=== PATIENT | male | born 1985 | race African-American/Black ===

== ENCOUNTER 2017-10-06 02:47 | Emergency (ER) | payer MEDICAID ==
[~2017-10-06] VITALS: Ht 165.1 cm; Wt 66.2 kg
[2017-10-06 03:18] VITALS: BP 120/72
[2017-10-06] MEDS ORDERED: Norco 5mg/325mg tab ORAL ONE (03:45)
[2017-10-06] MEDS ORDERED: IBUPROFEN600 MG ORAL (03:53)
[2017-10-06] MEDS ORDERED: DOXYCYCLINE MO100 MG ORAL (03:53)
[2017-10-06] MEDS ORDERED: HYDROCODON-ACE1 EA15 ORAL (03:53)
--- NOTE | 2017-10-06 03:53 | Emergency Room Report ---
History of Present Illness General Chief Complaint: Pain Source: Patient Present Illness HPI This is a 32-year-old male who is right-hand dominant. He present with chief complaint of left wrist pain. There is no trauma. Onset for last couple days. He noticed some swelling to the radial aspect. Radiating up the forearm and to the ulnar aspect. Pain is 8 out of 10. Worse with movement and palpation. No discharge. No other complaint. Denies any drug use. Allergies: Coded Allergies: No Known Allergies (Unverified , 10/06/17) Patient History Past Medical History: see triage record, old chart reviewed Past Surgical History: none Pertinent Family History: none Social History: Denies: smoking Immunizations: other Reviewed Nursing Documentation: PMH: Agreed; PSxH: Agreed Nursing Documentation-PMH Past Medical History: No Stated History Review of Systems Eye: Denies: eye pain, blurred vision ENT: Denies: ear pain, nose congestion, throat swelling Respiratory: Denies: cough, shortness of breath Cardiovascular: Denies: chest pain, palpitations Gastrointestinal: Denies: abdominal pain, diarrhea, nausea, vomiting Musculoskeletal: Reports: joint pain; Denies: back pain Skin: Denies: rash Neurological: Denies: headache, numbness Endocrine: Denies: increased thirst, increased urine Hematologic/Lymphatic: Denies: easy bruising All Other Systems: negative except mentioned in HPI Physical Exam Vital Signs Date Time Temp Pulse Resp B/P (MAP) Pulse Ox O2 Delivery O2 Flow Rate FiO2 10/06/17 03:10 97.8 63 16 110/62 97 Room Air 97.9 vitals normal Sp02 EP Interpretation: reviewed, normal General Appearance: well appearing, no apparent distress, alert Head: normocephalic, atraumatic Eyes: bilateral eye PERRL, bilateral eye EOMI ENT: hearing grossly normal, normal pharynx Neck: full range of motion, supple, no meningismus Respiratory: chest non-tender, lungs clear, normal breath sounds Cardiovascular #1: regular rate, rhythm, no murmur Gastrointestinal: normal bowel sounds, non tender, no mass, no organomegaly, no bruit, non-distended Musculoskeletal: back normal, gait/station normal, normal range of motion, tender - Left wrist: There are mild edema to the radial aspect of the wrist. Tender to palpation. Pulses are normal. Mild warmth. Pain with motion but able to move the wrist. Neurologic: alert, oriented x3 Psychiatric: mood/affect normal Skin: warm/dry Procedures Splinting Splinting : Consent: Verbal Location: left wrist Splint: volar Pre-Proc Neuro Vasc Exam: normal Post-Proc Neuro Vasc Exam: normal Patient Tolerated: Well Complications: None Medical Decision Making Diagnostic Impression: Primary Impression: Cellulitis of wrist ER Course Patient presents with left wrist pain. Most likely cellulitis. No evidence of septic joint. Other differential include gout. No trauma. We'll discharge home. Other X-Ray Diagnostic Results Other X-Ray Diagnostic Results : X-Ray ordered: left wrist x-rays # of Views/Limited Vs Complete: 4 View Indication: Pain EP Interpretation: Yes Interpretation: no dislocation, no soft tissue swelling, no fractures Impression: No acute disease Electronically Signed by: Ahsan Mckeon MD Last Vital Signs Date Time Temp Pulse Resp B/P (MAP) Pulse Ox O2 Delivery O2 Flow Rate FiO2 10/06/17 03:10 97.8 63 16 110/62 97 Room Air 97.9 Status: improved Disposition: HOME, SELF-CARE Condition: Stable Scripts Ibuprofen* (MOTRIN*) 600 Mg Tablet 600 MG ORAL THREE TIMES A DAY, #30 TAB 0 Refills Prov: AHSAN MCKEON M.D. 10/06/17 Hydrocodone/Acetaminophen 5-325* (HYDROCODONE/ACETAMINOPHEN 5-325*) 1 Each Tablet 1 TAB ORAL Q6H PRN for For Pain, #15 TAB 0 Refills Prov: AHSAN MCKEON M.D. 10/06/17 Doxycycline Monohydrate* (DOXYCYCLINE MONOHYDRATE*) 100 Mg Capsule 100 MG ORAL Q12H, #14 CAP 0 Refills Prov: AHSAN MCKEON M.D. 10/06/17 Additional Instructions: elevate hand. Ice pack to the area. Follow-up your DrTammy in 3-5 days for recheck. Return of worse. AHSAN MCKEON M.D. Oct 06, 2017 03:53
[2017-10-06 04:07] VITALS: BP 110/62
--- NOTE | 2017-10-06 09:14 | Diagnostic Imaging Report ---
Indication: Pain Technique: XRAY Wrist Complete L Comparison: None Findings: There is no evidence of acute fracture or dislocation. Alignment and joint spaces is observed. No focal soft tissue abnormality is appreciated. No radiopaque foreign body seen. Impression: No acute bony or articular abnormality.
== END 2017-10-06 04:05 | disposition home or self-care (01) ==
LOC: EMR 03:49
DX: L03.114 Cellulitis of left upper limb (principal)
CPT/HCPCS: 99284

== ENCOUNTER 2019-01-11 15:14 | Emergency (ER) | payer MEDICAID ==
[~2019-01-11] VITALS: Ht 165.1 cm; Wt 72.6 kg
[~2019-01-11 15:14] MED LIST: DOXYCYCLINE MO100 MG ORAL; HYDROCODON-ACE1 EA15 ORAL; IBUPROFEN600 MG ORAL
[2019-01-11 15:36] VITALS: BP 123/72
[2019-01-11] MEDS ORDERED: NKM (15:38)
--- NOTE | 2019-01-11 15:40 | NUR ---
ED Nurse Note: Patient walked into ED c/o rash, itchiness on the left forearm. patient is alert awake x4 ambulatory. breathing unlabored and even.
--- NOTE | 2019-01-11 15:44 | Emergency Room Report ---
History of Present Illness General Chief Complaint: Skin Rash/Abscess Source: Patient Present Illness HPI 33-year-old male with no significant past medical history presents today with pruritic and mildly painful insect bite to the left forearm. Patient reports that he has a spiders in his house. Does not recall whether he was bit however started noticing pain and swelling in the left forearm today. Patient is rating pain 3 out of 10 without radiation has full range of motion denies any motor or sensory deficits. Has not taken medication for symptoms, denies fever and chills, shortness of breath, abdominal pain, nausea vomiting. Denies anaphylaxis. Denies recent travel. Denies recent camping. Allergies: Coded Allergies: No Known Allergies (Unverified , 10/06/17) Patient History Past Medical History: see triage record Past Surgical History: unable to obtain Pertinent Family History: none Immunizations: UTD Reviewed Nursing Documentation: PMH: Agreed; PSxH: Agreed Nursing Documentation-PMH Past Medical History: No Stated History Review of Systems All Other Systems: negative except mentioned in HPI Physical Exam Vital Signs Date Time Temp Pulse Resp B/P (MAP) Pulse Ox O2 Delivery O2 Flow Rate FiO2 01/11/19 15:36 98.2 64 16 123/72 (89) 95 Room Air Sp02 EP Interpretation: reviewed, normal General Appearance: normal inspection, well appearing, no apparent distress, alert, GCS 15 Head: normocephalic, atraumatic Eyes: bilateral eye normal inspection, bilateral eye PERRL ENT: hearing grossly normal, normal pharynx, no angioedema, TMs + canals normal Neck: normal inspection, full range of motion, supple Respiratory: chest non-tender, lungs clear, no rhonchi, no wheezing Cardiovascular #1: normal inspection, normal peripheral pulses, regular rate, rhythm, no murmur, normal capillary refill Gastrointestinal: normal inspection, normal bowel sounds, non tender Genitourinary: no CVA tenderness Musculoskeletal: back normal, digits/nails normal Neurologic: normal inspection, alert, oriented x3 Psychiatric: normal inspection, memory normal Skin: other - Insect bite noted in the left forearm is mildly erythematous and edematous Lymphatic: normal inspection, no adenopathy Medical Decision Making PA Attestation All diagnoses and treatment plans were reviewed and discussed with my supervising physician Dr. Escalona Diagnostic Impression: Primary Impression: Infected insect bite of left forearm ER Course 33-year-old male with no significant past medical history presents today with pruritic and mildly painful insect bite to the left forearm. Patient reports that he has a spiders in his house. Does not recall whether he was bit however started noticing pain and swelling in the left forearm today. Patient is rating pain 3 out of 10 without radiation has full range of motion denies any motor or sensory deficits. Has not taken medication for symptoms, denies fever and chills, shortness of breath, abdominal pain, nausea vomiting. Denies anaphylaxis. Denies recent travel. Denies recent camping. Ddx considered but are not limited to: Eczema, scabies, lice, cellulitis, infected insect Vital signs: are WNL, pt. is afebrile H&PE are most consistent with: Infected insect bite ORDERS: Keflex, hydrocortisone cream, Benadryl ED INTERVENTIONS: None required at this time. DISCHARGE: At this time pt. is stable for d/c to home. Will provide printed patient care instructions, and any necessary prescriptions. Care plan and follow up instructions have been discussed with the patient prior to discharge. Follow-up with primary care provider if worsening symptoms return to the emergency room Last Vital Signs Date Time Temp Pulse Resp B/P (MAP) Pulse Ox O2 Delivery O2 Flow Rate FiO2 01/11/19 15:36 98.2 64 16 123/72 (89) 95 Room Air Disposition: HOME, SELF-CARE Condition: Stable Scripts Diphenhydramine HCl (Benadryl) 25 Mg Capsule 25 MG PO TID, #21 CAP Prov: Renny Boudreaux 01/11/19 Hydrocortisone 2% Cream (ANTI-ITCH 2% CREAM) Y Cr 2 GM TP TID, #28 GM Prov: Renny Boudreaux 01/11/19 Cephalexin* (KEFLEX*) 500 Mg Capsule 500 MG ORAL EVERY 6 HOURS for 7 Days, #28 CAP Prov: Renny Boudreaux 01/11/19 Patient Instructions: Insect Bite, [id number] Renny Boudreaux Jan 11, 2019 15:44
[2019-01-11] MEDS ORDERED: BENADRYL25 M3 PO (15:46)
[2019-01-11] MEDS ORDERED: CEPHALEXIN500 MG ORAL (15:46)
[2019-01-11] MEDS ORDERED: ANTI-ITCH28 G1 TP (15:46)
[2019-01-11 15:51] VITALS: BP 123/72
--- NOTE | 2019-01-11 15:51 | NUR ---
ER DISCHARGE NOTE: Patient is cleared to be discharged per CARMEN HIGGINS, pt is aox4, on room air, with stable vital signs. pt was given dc and prescription instructions, pt was able to verbalize understanding, pt id band removed without complications. pt is able to ambulate with steady gait. pt took all belongings.
== END 2019-01-11 16:00 | disposition home or self-care (01) ==
LOC: EMR 15:54
DX: S50.862A Insect bite (nonvenomous) of left forearm, initial encounter (principal); L08.9 Local infection of the skin and subcutaneous tissue, unspecified; W57.XXXA Bitten or stung by nonvenomous insect and other nonvenomous arthropods, initial encounter; Y92.009 Unspecified place in unspecified non-institutional (private) residence as the place of occurrence of the external cause
CPT/HCPCS: 99282

== ENCOUNTER 2020-07-05 21:18 | Emergency (ER) | payer MEDICAID ==
[~2020-07-05] VITALS: Ht 165.1 cm; Wt 69.9 kg
[~2020-07-05 21:18] MED LIST changes: +ANTI-ITCH28 G1 TP; +BENADRYL25 M3 PO; +CEPHALEXIN500 MG ORAL; +NKM
[2020-07-05 21:41] VITALS: BP 132/71
--- NOTE | 2020-07-05 21:47 | NUR ---
ED Nurse Note: Pt came to ED after seeing the dentist 5 days ago after having tooth pain. Was started on ATB from dentist 4 days ago. Today pt noticed swelling on the lower left side of his gums was getting bigger and pain has increased. Pt is A/O x4 and no SOB or acute distress noted. Pain noted at 4/10. Pt is ambulatory.
--- NOTE | 2020-07-05 22:04 | Emergency Room Report ---
History of Present Illness General Chief Complaint: Toothache Source: Patient Present Illness HPI Patient presents with increased left-sided lower jaw and dental pain. He was seen by his dentist and started on antibiotics. He is not sure of the name and is taking them 4 times a day. He has been taking ibuprofen. He says this has not been helping the pain. He also feels fullness in the side of the jaw. He rates the pain 10/10 at this time. Aching pain and pressure and radiates somewhat to the jaw. There is no facial swelling and no fevers. The patient reports having a problem with his tooth in the past. The patient denies exposure to Covid positive contacts. Allergies: Coded Allergies: No Known Allergies (Unverified , 10/06/17) COVID-19 Screening Contact w/high risk pt: No Experienced COVID-19 symptoms?: No COVID-19 Testing performed FANCY PACKER: No Patient History Past Medical History: see triage record Social History: Denies: smoking Social History Narrative With girlfriend Reviewed Nursing Documentation: PMH: Agreed; PSxH: Agreed Nursing Documentation-PMH Past Medical History: No Stated History Review of Systems Constitutional: Reports: see HPI ENT: Reports: see HPI Respiratory: Denies: shortness of breath Gastrointestinal: Denies: nausea, vomiting Skin: Denies: rash Neurological: Denies: headache Physical Exam Vital Signs Date Time Temp Pulse Resp B/P (MAP) Pulse Ox O2 Delivery O2 Flow Rate FiO2 07/05/20 21:32 98.2 62 20 114/57 (76) 98 Room Air Sp02 EP Interpretation: reviewed, normal General Appearance: well appearing, no apparent distress, GCS 15, non-toxic Head: normocephalic Eyes: bilateral eye normal inspection, bilateral eye PERRL, bilateral eye EOMI ENT: normal pharynx, moist mucus membranes, other - Swelling right lateral jaw area with partially impacted wisdom tooth and caries with some tenderness of the rear molar Neck: full range of motion, supple Respiratory: normal inspection Cardiovascular #1: regular rate, rhythm Cardiovascular #2: 2+ radial (L) Gastrointestinal: normal inspection Musculoskeletal: gait/station normal Neurologic: alert, grossly normal Psychiatric: mood/affect normal Skin: normal color, no rash Medical Decision Making Diagnostic Impression: Primary Impression: Dental infection ER Course Patient presents with swelling and tenderness right lower jaw. Differential includes dental abscess, dental pain, dental infection amongst others. There is no evidence of abscess to be drained at this time. Patient is on antibiotic coverage that should be adequate. Patient is treated with a shot of Toradol. Described to patient local care. Identification of amoxicillin 500 mg of the antibiotic. Patient stable for outpatient observation and treatment. Last Vital Signs Date Time Temp Pulse Resp B/P (MAP) Pulse Ox O2 Delivery O2 Flow Rate FiO2 07/05/20 21:41 97.8 74 16 132/71 98 Room Air Status: improved Disposition: HOME, SELF-CARE Condition: Improved Scripts Lidocaine HCl 2% Viscous (Lidocaine HCl 2% Viscous) 100 Ml Solution 1 APPLIC TOPIC QID PRN for dental pain, #30 ML Prov: Darrion Chavez MD 07/05/20 Hydrocodone/Acetaminophen 5-325* (HYDROCODONE/ACETAMINOPHEN 5-325*) 1 Each Tablet 1 TAB ORAL Q6H PRN for For Pain, #8 TAB 0 Refills Prov: Darrion Chavez MD 07/05/20 Darrion Chavez MD Jul 05, 2020 22:04
[2020-07-05] MEDS ORDERED: LIDOCAINE VISC100 ML TOPIC (22:12)
[2020-07-05] MEDS ORDERED: HYDROCODON-ACE1 EA15 ORAL (22:12)
[2020-07-05] MEDS ORDERED: Ketorolac 30mg Inj IM ONE (22:15)
--- NOTE | 2020-07-05 22:39 | NUR ---
ER DISCHARGE NOTE: Patient is cleared to be discharged per ERMD, pt is aox4, on room air, with stable vital signs. pt was given dc and prescription instructions, pt was able to verbalize understanding, pt id band removed without complications. pt is able to ambulate with steady gait. pt took all belongings.
== END 2020-07-05 22:40 | disposition home or self-care (01) ==
LOC: EMR 22:03
DX: K04.7 Periapical abscess without sinus (principal); K02.9 Dental caries, unspecified
CPT/HCPCS: 96372; J1885; Z7502; 99283